=== PATIENT | female | born 1985 | race Caucasian/White ===

== ENCOUNTER 2018-07-08 07:00 | Day surgery (SDC) | payer OTHER ==
[~2018-07-08 07:00] MED LIST: SEVOFLURANE 15 MIN; SOD CHLORIDE 0.9% 1,000 ML IV
[2018-07-08] MEDS ORDERED: FENTAnyl 50 MCG/ML VIAL ×2 (07:36→08:11)
[2018-07-08] MEDS ORDERED: LIDOCAINE 2% (SDV) 5 ML INJ (07:36)
[2018-07-08] MEDS ORDERED: MIDAZOLAM 1 MG/ML 2 ML INJ (07:36)
[2018-07-08] MEDS ORDERED: PROPOFOL 20 ML (07:36)
[2018-07-08] MEDS ORDERED: ONDANSETRON 4 MG INJ (07:49)
[2018-07-08] MEDS ORDERED: CEFAZOLIN 1 GM INJ (07:49)
[2018-07-08] MEDS ORDERED: DEXAMETHASONE 4 MG/ML 5 ML INJ (07:49)
[2018-07-08] MEDS ORDERED: FAMOTIDINE 20 MG INJ (07:49)
[2018-07-08] MEDS ORDERED: PROCHLORPERAZINE 10 MG INJ IV (08:00)
[2018-07-08] MEDS ORDERED: HYDROmorphONE 1 MG/5 ML IV SYRINGE IV (08:00)
[2018-07-08] MEDS ORDERED: DIPHENHYDRAMINE 50 MG INJ IV (08:00)
[2018-07-08] MEDS ORDERED: FENTAnyl 50 MCG/ML VIAL IV ×3 (08:00)
[2018-07-08] MEDS ORDERED: MEPERIDINE 25 MG INJ IV (08:00)
[2018-07-08] MEDS ORDERED: HYDROmorphONE 2 MG/ML SYG (08:01)
[2018-07-08] MEDS ORDERED: OXYCODONE/ACETAMINOPHEN (5/325) TAB PO (08:30)
[2018-07-08] MEDS ORDERED: hydrALAzine 20 MG INJ (08:33)
[2018-07-08] MEDS: POLYMYXIN/BACITRACIN 1L IRRIG (08:39)
[2018-07-08] MEDS: BUPIVACAINE LIPOSOME/PF 266 MG/20 ML VIAL INFIL (08:40)
[2018-07-08] MEDS: EPINEPHrine 1 MG INJ (08:40)
[2018-07-08] MEDS ORDERED: PHENYLephrine (100 MCG/ML) 10ML SYG (10:27)
[2018-07-08] MEDS ORDERED: morphine 2 MG INJ IV (11:00)
[2018-07-08] MEDS: HYDROmorphONE 1 MG/5 ML IV SYRINGE IV ×2 (11:29→11:36)
[2018-07-08] MEDS: ONDANSETRON 4 MG INJ IV ×2 (11:29→12:33)
[2018-07-08] MEDS: HYDROCODONE/APAP (5/325) TAB PO (12:29)
== END 2018-07-08 13:55 | disposition home or self-care (01) ==
LOC: SDS 07:00
DX: N62 Hypertrophy of breast (principal); D24.2 Benign neoplasm of left breast; D24.1 Benign neoplasm of right breast; M54.2 Cervicalgia
CPT/HCPCS: 19318; 88305